=== PATIENT | female | born 1980 | race Caucasian/White ===

== ENCOUNTER 2019-11-10 08:50 | Emergency (ER) | payer OTHER, SELFPAY ==
--- NOTE | ~2019-11-10 | XR_ITS ---
EXAMINATION: XR shoulder RT min 2V, XR clavicle RT EXAM DATE: 11/10/2019 09:46 INDICATION: No known recent injury provided at this time. Pain of the right shoulder, clavicle. TECHNIQUE: The following right shoulder projections obtained: frontal projection with internal rotati on, frontal projection with external rotation, Grashey, and axillary (4+ views). 2 frontal projectio ns right clavicle. There are no prior studies for comparison. FINDINGS: No evidence of right shoulder rotator cuff calcific tendinosis. Unremarkable right gleno humeral and acromioclavicular joints. There are no acute clavicle or shoulder fractures or dislocatio ns identified. There is no subcutaneous gas. The soft tissue is unremarkable. There are no radiop aque foreign bodies. IMPRESSION: No acute osseous findings. Reviewed, dictated and finalized at location B. RAL MAINTENANCE TECHNICIAN IMPRESSION: No acute osseous findings. IMPRESSION: No acute osseous findings.
[2019-11-10 08:56] VITALS: BP 132/91; PULSE 72; RESP 16; TEMP 36.6; O2SAT 100
--- NOTE | 2019-11-10 10:00 | ED.UPPEXIN ---
HPI - Extremity Injury (Upper) General Chief Complaint: Extremity Injury, Upper <Sydnie Álvarez PA-C - Last Filed: 11/10/19 20:31> Stated Complaint: neck and shoulder pain <CHRISTINE Vann Last Filed: 11/10/19 20:31> Time Seen by Provider: 11/10/19 09:06 <Sydnie Álvarez PA-C - Last Filed: 11/10/19 20:31> Source: patient <CHRISTINE Vann Last Filed: 11/10/19 20:31> Mode of arrival: ambulatory <CHRISTINE Vann Last Filed: 11/10/19 20:31> Limitations: no limitations <CHRISTINE Vann Last Filed: 11/10/19 20:31> History of Present Illness HPI narrative: Patient presents with chief complaint of pain to the right shoulder and clavicle that began 1 week ago after stretching her arm across her body. Patient reports that she was seen at her occupational medicine office but the symptoms have persisted. Patient states she has not had any imaging done. Patient states that it feels tight but after having her partner rubbed the area the pain felt better than worsen. Patient denies any direct trauma to the shoulder prior fracture. Patient denies any other symptoms. <Sydnie Álvarez PA-C - Last Filed: 11/10/19 20:31> Related Data Home Medications: Home Medications Medication Instructions Recorded Confirmed levothyroxine 112 mcg PO DAILY 11/10/19 11/10/19 <CHRISTINE Vann Last Filed: 11/10/19 20:31> Allergies/Adverse Reactions: Allergies Allergy/AdvReac Type Severity Reaction Status Date / Time ciprofloxacin Allergy Intermediate Hives / Verified 02/22/18 08:21 Red Face metronidazole [From Flagyl] Allergy Hives Verified 11/10/19 08:55 <CHRISTINE Vann Last Filed: 11/10/19 20:31> Review of Systems Review of Systems: Narrative: CONSTITUTIONAL: Denies fever, chills, or sweats. EYES: Denies visual changes, redness, or discharge. ENT: Denies rhinorrhea, congestion, sore throat, or otalgia. CARDIOVASCULAR: Denies chest pain, palpitations, or edema. RESPIRATORY: Denies cough or dyspnea. GASTROINTESTINAL: Denies abdominal pain, nausea, vomiting, or diarrhea. GENITOURINARY: Denies dysuria or hematuria. SKIN: Denies rash or itching. MUSCULOSKELETAL: Reports right shoulder and clavicle pain NEUROLOGIC: Denies headache, numbness, dizziness, or weakness. PSYCHIATRIC: Denies anxiety or depression. <Sydnie Álvarez PA-C - Last Filed: 11/10/19 20:31> [facility], [facility] Past Medical History Medical History: Medical History (Updated 11/11/19 @ 00:00 by Background Daemon) Hypothyroid <CHRISTINE Vann Last Filed: 11/10/19 20:31> Social History Social History: Social History Smoking status: Current every day smoker Alcohol intake: never Gender identity (if verbalized by the patient): Female <Sydnie Álvarez PA-C - Last Filed: 11/10/19 20:31> Exam Narrative: Exam Narrative: GENERAL: Well-appearing, well-nourished, and in no acute distress. HEAD: Normocephalic, atraumatic. EYES: PERRLA and EOMI. ENT: Nares clear, no rhinorrhea or epistaxis. Mucous membranes moist. Oropharynx without tonsillar hypertrophy exudate or other lesions. Bilateral TMs pearly roberts nonbulging NECK: Supple. No adenopathy or masses. Range of motion intact CHEST: Clear to auscultation. No respiratory distress. No wheezes rales or rhonchi HEART: Regular rate and rhythm. No murmur heard. Normal peripheral pulses. ABDOMEN: Soft, nontender, nondistended, normal active bowel sounds. EXTREMITIES: Range of motion intact to right shoulder. Pain with external rotation and adduction. Tightness of the right sternocleidomastoid area and tenderness palpation. No outward signs of deformity or trauma. SKIN: Warm, dry, no rash. NEURO: No focal deficits. Alert and oriented x3. PSYCH: Normal mood and affect. <Sydnie Álvarez PA-C - Last Filed: 11/10/19 20:31> Course Vital Signs Vital signs: Vital Signs Temperature 36.6 C 11/10/19 08:56 Pulse Ra
== END 2019-11-10 10:16 | disposition home or self-care (01) ==
PROVIDERS: Emergency Provider Emergency Medicine
DX: S46.911A Strain of unspecified muscle, fascia and tendon at shoulder and upper arm level, right arm, initial encounter (principal); S16.1XXA Strain of muscle, fascia and tendon at neck level, initial encounter; E03.9 Hypothyroidism, unspecified; F17.200 Nicotine dependence, unspecified, uncomplicated; X58.XXXA Exposure to other specified factors, initial encounter
CPT/HCPCS: 73000; 73030; 99283

== ENCOUNTER 2020-01-18 12:14 | Emergency (ER) | payer OTHER, SELFPAY ==
[2020-01-18 12:17] VITALS: BP 142/87; PULSE 76; RESP 18; TEMP 36.8; O2SAT 100
--- NOTE | 2020-01-18 12:26 | ED.FEMALEGU ---
HPI - Female Genitourinary General Chief complaint: Unspecified <Adolfo Hogue PA-C - Last Filed: 01/18/20 13:35> Stated complaint: fatigued <CHRISTINE Eckert Last Filed: 01/18/20 13:35> Time Seen by Provider: 01/18/20 12:21 <CHRISTINE Eckert Last Filed: 01/18/20 13:35> Source: patient and RN notes reviewed <CHRISTINE Eckert Last Filed: 01/18/20 13:35> Mode of arrival: ambulatory <CHRISTINE Eckert Last Filed: 01/18/20 13:35> Limitations: no limitations <CHRISTINE Eckert Last Filed: 01/18/20 13:35> History of Present Illness HPI Narrative: Pt is a 39 y/o female with a Hx of UTI's, who presents to the ED with c/o possible UTI. She notes that she began having dysuria and cloudy appearing urine last night. Pt states that she is concerned she may have a UTI. She also reports a cough for the past several days, but denies any ABD pain, back pain, fever, vomiting, or SOB. Pt states that she hasn't had any recent contact with sick children at home. <Adolfo Hogue PA-C - Last Filed: 01/18/20 13:35> MD elicited complaint: UTI <CHRISTINE Eckert Last Filed: 01/18/20 13:35> Pertinent past history: recurrent UTIs <CHRISTINE Eckert Last Filed: 01/18/20 13:35> Onset (ago): day(s) (1) <Adolfo Hogue PA-C - Last Filed: 01/18/20 13:35> Location of symptoms: urethra <CHRISTINE Eckert Last Filed: 01/18/20 13:35> Urinary symptoms: Dysuria <CHRISTINE Eckert Last Filed: 01/18/20 13:35> Associated symptoms: other (cloudy appearing urine; cough) <CHRISTINE Eckert Last Filed: 01/18/20 13:35> Related Data Home medications: Home Medications Medication Instructions Recorded Confirmed levothyroxine 112 mcg PO DAILY 11/10/19 11/10/19 <ARTEMIO Eckert Last Filed: 01/18/20 13:35> Allergies/Adverse reactions: Allergies Allergy/AdvReac Type Severity Reaction Status Date / Time ciprofloxacin Allergy Intermediate Hives / Verified 01/18/20 12:30 Red Face metronidazole [From Flagyl] Allergy Other Verified 01/18/20 12:30 <ARTEMIO Eckert Last Filed: 01/18/20 13:35> Review of Systems Review of Systems: All systems reviewed & are unremarkable except as noted in HPI and below <ARTEMIO Eckert Last Filed: 01/18/20 13:35> Constitutional: Constitutional: Denies fever(s) <Adolfo Hogue PA-C Last Filed: 01/18/20 13:35> Respiratory: Respiratory: Reports cough and Denies dyspnea <ARTEMIO Eckert Last Filed: 01/18/20 13:35> Gastrointestinal: Gastrointestinal: Denies abdominal pain and Denies vomiting <ARTEMIO Eckert Last Filed: 01/18/20 13:35> Genitourinary: Genitourinary: Reports dysuria and Reports other (cloudy appearing urine) <Adolfo Hogue PA-C Last Filed: 01/18/20 13:35> Musculoskeletal: Musculoskeletal: Denies back pain <ARTEMIO Eckert Last Filed: 01/18/20 13:35> [facility] Past Medical History Medical History: Medical History Back pain Clavicle fracture Diverticulitis Hiatal hernia Hypothyroid Kidney stones Umbilical hernia UTI (urinary tract infection) <ARTEMIO Eckert Last Filed: 01/18/20 13:35> Surgical History Surgical History: Surgical History History of endometrial ablation History of repair of hiatal hernia Hx of appendectomy Hx of section Hx of tubal ligation Hx of umbilical hernia repair <Adolfo Hogue PA-C Last Filed: 01/18/20 13:35> Social History Social History: Social History Smoking status: Current every day smoker Alcohol intake: never Gender identity (if verbalized by the patient): Female <Adolfo Hogue PA-C - Last Filed: 01/18/20 13:35> Course Course Emergency
[2020-01-18 12:32] VITALS: RESP 16
[2020-01-18 12:51] LABS: Add Urine Microscopic? YES; Appearance Urine Cloudy (Clear); Bacteria Urine Trace /hpf; Bilirubin Urine Negative (Negative); Blood Urine 3+ (Negative); Color Urine Yellow (Yellow); Glucose Urine UA Negative (Negative); Ketones Urine Negative (Negative); Leukocyte Esterase Ur 2+ LEU/UL (Negative); Mucus Urine Rare /lpf; Nitrate Urine Negative (Negative); Protein Urine 2+ mg/dL (Negative); RBC Urine >75 /hpf (0-2); Specific Grav Ur 1.015 (1.001-1.035); Squamous Epithelial Cell Urine Many /hpf (Few); Urobilinogen Urine Negative mg/dL (<2.0); WBC Urine >75 /hpf
== END 2020-01-18 13:49 | disposition home or self-care (01) ==
PROVIDERS: Emergency Medicine Emergency Medical Services; Emergency Provider General Practice
DX: N39.0 Urinary tract infection, site not specified (principal); E03.9 Hypothyroidism, unspecified; Z87.442 Personal history of urinary calculi; F17.200 Nicotine dependence, unspecified, uncomplicated
CPT/HCPCS: 81001; 87077; 87086; 87088; 87186; 99283

== ENCOUNTER 2023-03-17 08:53 | Emergency (ER) | payer BC, SELFPAY ==
--- NOTE | ~2023-03-17 | CT_ITS ---
EXAMINATION: CT abdomen pelvis w con DATE: 03/17/2023 09:44 INDICATION: Left lower quadrant abdominal pain TECHNIQUE: Computed tomography (CT) of the abdomen and pelvis was performed with 100 CC Omnipaque 350 intravenous contrast. Automated exposure control and iterative reconstruction technique were employe d. Exam dose: 327.64 mGy-cm total exam DLP. COMPARISON: 07/16/2019 CT abdomen pelvis FINDINGS: The lung bases are clear. Normal heart size. No pericardial or pleural effusion. Chronic cy sts are noted along the right heart margin in the lower chest There are several probable hepatic cavernous hemangiomas with peripheral flow and contrast material. Occasional probable hepatic cysts. Borderline splenic size. Abdomen is present. No gallbladder wall thickening or pericholecystic fluid or fat stranding. No bile duct or pancreatic duct dilatation. No pancreatic mass lesion or calcification. Normal morphology of the adrenal glands. There are couple of up to 8 mm left renal cysts. Approximately 3 mm nonobstructing lower pole right renal calculus. There are 2 pinpoint nonobstructin g left renal calculi. No ureteral calculus or hydroureteronephrosis. Normal caliber of the abdominal aorta. No intraperitoneal or retroperitoneal or pelvic mass lesion or adenopathy or ascites. The urinary bladder, uterus and adnexal areas are unremarkable except for a peripherally enhancing ap proximately 2 cm left corpus luteum cyst. There is localized pericolic fat infiltration at the very proximal sigmoid colon, consistent with mil d diverticulitis, without abscess or intraperitoneal free air. There are numerous diverticula of the colon, particularly of the sigmoid and descending colon. No bow el obstruction or intraperitoneal free air. Small fat-containing umbilical hernia. Severe degenerative disc disease and prominent posterior spurring at L4-5. No suspicious osteolytic or osteoblastic lesions. IMPRESSION: Focal mild diverticulitis of the proximal sigmoid colon Diverticulosis of left and right colon, particularly left colon Bilateral nonobstructive nephrolithiasis Hepatic hemangiomas and cysts Left renal cysts Reviewed, dictated and finalized at Location [facility]. Reviewed, dictated and finalized at location A.
[2023-03-17 09:03] VITALS: BP 143/104; PULSE 84; RESP 14; TEMP 36.4; O2SAT 99
[2023-03-17 09:12] LABS: Basophils Absolute Auto 0.1 K/mm3 (0.0-0.1); Basophils Percent Auto 0.8 % (0.2-1.2); Eosinophils Absolute Auto 0.2 K/mm3 (0-0.3); Eosinophils Percent Auto 2.2 % (0-4.4); Hematocrit 42.8 % (37.0-47.0); Hemoglobin 14.9 g/dL (12.0-15.0); Immature Granulocyte Absolute 0.08 K/mm3 (0.00-0.031); Immature Granulocyte Percent A 1.1 % (0-0.5); Lymphocytes Absolute Auto 2.39 K/mm3 (0.9-3.2); Lymphocytes Percent Auto 31.5 % (18.3-44.2); Mean Corpuscular HGB Conc 34.8 g/dl (32-36); Mean Corpuscular Hemoglobin 32.5 pg (26-34); Mean Corpuscular Volume 93.2 fl (80-100); Mean Platelet Volume 9.4 fl (7.4-10.4); Monocytes Absolute Auto 0.5 K/mm3 (0.1-0.6); Monocytes Percent Auto 6.2 % (2.6-8.5); Neutrophils Absolute Auto 4.4 K/mm3 (1.3-6.7); Neutrophils Percent Auto 58.2 % (45.5-73.1); Platelet Count Result 266 k/mm3 (150-375); Red Blood Count 4.59 M/mm3 (4.2-5.4); White Blood Count 7.6 K/mm3 (4.5-10.0)
--- NOTE | 2023-03-17 09:13 | ED.ABDPAIN ---
HPI - Abdominal Pain General Chief Complaint: Abdominal Pain Stated Complaint: abd pain Time Seen by Provider: 03/17/23 09:01 History of Present Illness HPI narrative: 43-year-old female with a history of diverticulitis reports for evaluation of left lower quadrant pain x3 days. Patient reports 3 days prior to the onset of pain, she was having multiple episodes of diarrhea. The diarrhea has since resolved and then the left lower quadrant pain started and has been a dull ache since that is sharp when she pushes on her left lower quadrant. States she is concerned it is diverticulitis since it is similar to when she had it in the past, however when she had it previously she had pain in the right lower quadrant. States when she eats she feels like she is not fully digesting her food. She has been eating a clear liquid diet, however states she had a cheat meal yesterday. She reports associated nausea and low back pain. Denies fever, body aches, chills, current diarrhea, melena or hematochezia, chest pain or shortness of breath, urinary complaints. Her last bowel movement was yesterday and normal. LMP ~2-3 weeks ago. Related Data Home Medications Medication Instructions Recorded Confirmed levothyroxine 112 mcg tablet 112 mcg PO DAILY 01/31/22 01/31/22 (Euthyrox) valacyclovir 500 mg tablet 500 mg PO DAILY 01/31/22 01/31/22 (Valtrex) Allergies Allergy/AdvReac Type Severity Reaction Status Date / Time ciprofloxacin Allergy Intermediate Hives / Verified 03/17/23 09:05 Red Face metronidazole [From Flagyl] Allergy Intermediate Other Verified 03/17/23 09:05 Review of Systems Review of Systems: CONSTITUTIONAL: Denies fever, chills EYES: Denies visual changes, redness, or discharge. ENT: Denies rhinorrhea, congestion, sore throat, or otalgia. CARDIOVASCULAR: Denies chest pain, palpitations, or edema. RESPIRATORY: Denies cough or dyspnea. GASTROINTESTINAL: See HPI GENITOURINARY: Denies dysuria or hematuria. SKIN: Denies rash or itching. MUSCULOSKELETAL: Denies joint pain, or myalgia. NEUROLOGIC: Denies headache, numbness, dizziness, or weakness. PSYCHIATRIC: Denies anxiety or depression. [facility] Past Medical History Medical History Back pain Clavicle fracture Diverticulitis Hiatal hernia HSV-2 infection Hypothyroid Kidney stones Umbilical hernia UTI (urinary tract infection) Surgical History Surgical History History of endometrial ablation Hx of appendectomy Hx of section Hx of tubal ligation Family History Family History Other Cervical cancer Congestive heart failure Diabetes mellitus Hypertension Hypothyroid Lung cancer Social History Social History Smoking status: Current every day smoker Tobacco type: cigarettes Alcohol intake: current Alcohol use details: SOCIALLY Substance use: never Substance use type: does not use Living arrangements: with family Occupation/Education: occupation Additional occupation/education comments: concession cashier Gender identity (if verbalized by the patient): Female Sexual Orientation (if Verbalized by the Patient): Straight or Heterosexual Exam Narrative: GENERAL: Well-appearing, in no acute distress. Patient resting comfortably examined. She is pleasant and conversational. HEAD: Normocephalic EYES: PERRLA, EOMI ENT: Nares clear. Mucous membranes moist. Oropharynx without tonsillar hypertrophy exudate or other lesions. NECK: Supple. CHEST: No respiratory distress. Clear to auscultation, no adventitious breath sounds. HEART: Regular rate and rhythm. No murmur heard. Normal peripheral pulses. ABDOMEN: Normal active bowel sounds, soft. Tenderness in the left lower quadrant and suprapubic region. No
[2023-03-17] MEDS: ONDANSETRON INJ 4 MG/2 ML VIAL IV PUSH (09:17)
[2023-03-17] MEDS: SODIUM CHLORIDE 0.9% IV 1,000 ML 999 ML IV CONT (09:17)
[2023-03-17] MEDS: KETOROLAC 30 MG/ML VIAL (*BKC) IV PUSH (09:17)
[2023-03-17 09:19] LABS: Appearance Urine Cloudy (Clear); Bacteria Urine None Seen /hpf; Bilirubin Urine Negative (Negative); Blood Urine Negative (Negative); Color Urine Yellow (Yellow); Glucose Urine UA Negative (Negative); Ketones Urine Negative (Negative); Leukocyte Esterase Ur Negative LEU/UL (Negative); Nitrate Urine Negative (Negative); Non Pathogenic Casts 0-2; Protein Urine Negative (Negative); RBC Urine 0-2 /hpf (0-2); Specific Grav Ur 1.005 (1.001-1.035); Squamous Epithelial Cell Urine Occasional /hpf (Few); Urobilinogen Urine 0.2 mg/dL (<2.0); WBC Urine 0-5 /hpf
[2023-03-17 09:22] LABS: Add Urine Microscopic? YES
[2023-03-17 09:26] LABS: Alanine Aminotransferase 14 U/L (6-35); Albumin Level 4.2 g/dL (3.5-5.1); Alkaline Phosphatase 64 U/L (38-126); Anion Gap 8 mmol/L (8-16); Aspartate Amino Transferase 19 U/L (14-36); Bilirubin,Total 0.6 mg/dL (0.2-1.3); Blood Urea Nitrogen 6 mg/dL (7-17); Calcium 8.8 mg/dL (8.4-10.2); Carbon Dioxide 24 mmol/L (22-30); Chloride 107 mmol/L (98-107); Estimated Glomerular Filt Rate > 60; Glucose 88 mg/dL (65-110); Lipase 83 U/L (23-300); Potassium 4.4 mmol/L (3.4-5.0); Sodium 139 mmol/L (137-145)
[2023-03-17 10:50] VITALS: BP 121/78; PULSE 74; RESP 19; O2SAT 98
== END 2023-03-17 10:50 | disposition home or self-care (01) ==
PROVIDERS: Emergency Medicine; Emergency Provider Physician Assistant
DX: K57.92 Diverticulitis of intestine, part unspecified, without perforation or abscess without bleeding (principal); B00.9 Herpesviral infection, unspecified; F17.210 Nicotine dependence, cigarettes, uncomplicated
CPT/HCPCS: 36415; 74177; 80053; 81001; 81025; 83690; 85025; 96374; 96375; 99284; J1885; J2405; J7030; Q9967

== ENCOUNTER 2023-10-08 15:48 | Emergency (ER) | payer BC, SELFPAY ==
--- NOTE | ~2023-10-08 | CT_ITS ---
EXAMINATION: CT abdomen pelvis w con DATE: 10/09/2023 00:49 INDICATION: Left abdominal pain. Nausea. TECHNIQUE: Computed tomography (CT) of the abdomen and pelvis was performed with 100 mL Omnipaque 350 intravenous contrast. Automated exposure control and iterative reconstruction technique were employe d. The dose-length product was 389.41 mGy-cm. COMPARISON: CT abdomen and pelvis 03/17/2023 FINDINGS: The visualized portions of the lung bases demonstrate minimal atelectasis in right middle l obe. No pleural effusion. The heart size is normal. No pericardial effusion. There is a 4.7 x 1.3 cm pericardial cyst on the right. There are hemangiomas in the liver measuring up to 2.1 cm. There are c ysts in the liver measuring up to 7 mm. The gallbladder is contracted. The spleen, pancreas, and adre nal glands are normal. There is a 4 mm stone in right kidney. There are cysts in left kidney measurin g up to 9 mm. There is diverticulosis of the colon without evidence of diverticulitis. There are no d ilated loops of bowel. The appendix is not visualized. There are no pathologically enlarged lymph nod es. There is no free intraperitoneal fluid. The bladder is distended. There is severe lumbar spondylo sis. IMPRESSION: 1. No etiology for the patient's symptoms. Reviewed, dictated and finalized at location E. RAFT AVIONICS TECHNICIAN
--- NOTE | ~2023-10-08 | US_ITS ---
EXAMINATION: US pelvic complete w TV DATE: 10/09/2023 04:22 INDICATION: Left lower quadrant abdominal pain. Left ovarian cyst. TECHNIQUE: Multiple transabdominal and transvaginal sonographic images of the pelvis were obtained. COMPARISON: CT abdomen and pelvis 10/09/2023 FINDINGS: TRANSABDOMINAL ULTRASOUND: The uterus measures 8.0 x 4.0 x 4.8 cm. There is no free fluid in the pelvis. TRANSVAGINAL ULTRASOUND: The endometrial complex measures 7 mm in thickness. The right ovary measures 3.0 x 1.6 x 2.3 cm. The left ovary measures 3.4 x 2.2 x 2.0 cm. There is a 1.2 cm corpus luteum cyst in left ovary. There is normal vascular flow in the ovaries. IMPRESSION: 1. Normal pelvis. Reviewed, dictated and finalized at location E. CTOR ASSET IMPRESSION: 1. Normal pelvis.
[2023-10-08 16:22] VITALS: BP 142/79; PULSE 78; RESP 16; TEMP 36.3; O2SAT 100
[2023-10-08 23:02] VITALS: BP 144/96; PULSE 72; RESP 18; TEMP 36.8; O2SAT 100
[2023-10-08 23:27] LABS: Basophils Absolute Auto 0.1 K/mm3 (0.0-0.1); Basophils Percent Auto 0.7 % (0.2-1.2); Eosinophils Absolute Auto 0.2 K/mm3 (0-0.3); Eosinophils Percent Auto 2.5 % (0-4.4); Hematocrit 43.7 % (37.0-47.0); Hemoglobin 14.5 g/dL (12.0-15.0); Immature Granulocyte Absolute 0.06 K/mm3 (0.00-0.031); Immature Granulocyte Percent A 0.7 % (0-0.5); Lymphocytes Percent Auto 36.9 % (18.3-44.2); Mean Corpuscular HGB Conc 33.2 g/dl (32-36); Mean Corpuscular Hemoglobin 31.7 pg (26-34); Mean Corpuscular Volume 95.6 fl (80-100); Mean Platelet Volume 10.3 fl (7.4-10.4); Monocytes Absolute Auto 0.5 K/mm3 (0.1-0.6); Monocytes Percent Auto 5.1 % (2.6-8.5); Neutrophils Percent Auto 54.1 % (45.5-73.1); Platelet Count Result 255 k/mm3 (150-375); Red Blood Count 4.57 M/mm3 (4.2-5.4); White Blood Count 9.2 K/mm3 (4.5-10.0)
[2023-10-08 23:29] LABS: Appearance Urine Clear (Clear); Bilirubin Urine Negative (Negative); Blood Urine Negative (Negative); Color Urine Yellow (Yellow); Glucose Urine UA Negative (Negative); Ketones Urine Negative (Negative); Leukocyte Esterase Ur Negative LEU/UL (Negative); Nitrate Urine Negative (Negative); Protein Urine Negative (Negative); Specific Grav Ur 1.009 (1.001-1.035); Urobilinogen Urine 0.2 mg/dL (<2.0); pH Urine 5.5 (5.0-9.0)
[2023-10-08 23:36] LABS: Add Urine Microscopic? NO; Alanine Aminotransferase 11 U/L (6-35); Albumin Level 4.1 g/dL (3.5-5.1); Alkaline Phosphatase 74 U/L (38-126); Anion Gap 7 mmol/L (8-16); Aspartate Amino Transferase 20 U/L (14-36); Bilirubin,Total 0.4 mg/dL (0.2-1.3); Blood Urea Nitrogen 10 mg/dL (7-17); Calcium 9.1 mg/dL (8.4-10.2); Carbon Dioxide 24 mmol/L (22-30); Chloride 106 mmol/L (98-107); Estimated CRCL calculation 94 ml/min; Estimated Glomerular Filt Rate > 60; Glucose 95 mg/dL (65-110); Lipase 154 U/L (23-300); Potassium 3.8 mmol/L (3.4-5.0); Sodium 137 mmol/L (137-145)
[2023-10-09] VITALS (11 sets, daily range): BP systolic 103–150; BP diastolic 75–95; PULSE 66–80; RESP 12–18; TEMP 36.7; O2SAT 94–100
[2023-10-09] MEDS: SODIUM CHLORIDE 0.9% IV 1,000 ML 999 ML IV CONT (00:48)
[2023-10-09] MEDS: ONDANSETRON INJ 4 MG/2 ML VIAL IV PUSH ×2 (00:49→05:23)
[2023-10-09] MEDS: MORPHINE SULFATE (*CRX) 4 MG/ML INJ IV PUSH ×2 (00:50→03:24)
--- NOTE | 2023-10-09 01:00 | ED.ABDPAIN ---
HPI - Abdominal Pain General Chief Complaint: Abdominal Pain <CHRISTINE Myers Last Filed: 10/09/23 03:42> Stated Complaint: abd pain <CHRISTINE Myers Last Filed: 10/09/23 03:42> Time Seen by Provider: 10/08/23 22:51 <CHRISTINE Myers Last Filed: 10/09/23 03:42> Source: patient <CHRISTINE Myers Last Filed: 10/09/23 03:42> Mode of arrival: ambulatory <CHRISTINE Myers Last Filed: 10/09/23 03:42> Limitations: no limitations <CHRISTINE Myers Last Filed: 10/09/23 03:42> History of Present Illness HPI narrative: patient is a 43-year-old female who presents to the ED with report of left-sided abdominal pain. Patient reports she began having pain in her left-sided abdomen today. States pain is mild with intermittent waves of increased severity. She notes history of diverticulitis and was concerned she may be having a flare up. Last episode of diverticulitis was in in March of this year. Patient denies any diarrhea or constipation. States she had 2 loose bowel movements this morning. Denied rectal bleeding or melena. Reports nausea, denies vomiting. Denies fevers. Denies dysuria, hematuria. <CHRISTINE Myers Last Filed: 10/09/23 03:42> Related Data Home Medications: Home Medications Medication Instructions Recorded Confirmed levothyroxine 112 mcg tablet 112 mcg PO DAILY 01/31/22 01/31/22 (Euthyrox) valacyclovir 500 mg tablet 500 mg PO DAILY 01/31/22 01/31/22 (Valtrex) <CHRISTINE Myers Last Filed: 10/09/23 03:42> Allergies/Adverse Reactions: Allergies Allergy/AdvReac Type Severity Reaction Status Date / Time ciprofloxacin Allergy Intermediate Hives / Verified 03/17/23 09:05 Red Face metronidazole [From Flagyl] Allergy Intermediate Other Verified 03/17/23 09:05 <Maria Isabel Banks PA-C - Last Filed: 10/09/23 03:42> Review of Systems Review of Systems: CONSTITUTIONAL: Denies fever, chills, or sweats. GASTROINTESTINAL: See HPI. GENITOURINARY: Denies dysuria or hematuria. <Maria Isabel Banks PA-C - Last Filed: 10/09/23 03:42> All systems reviewed & are unremarkable except as noted in HPI and below <Maria Isabel Banks PA-C - Last Filed: 10/09/23 03:42> [facility] Past Medical History Medical History: Medical History Back pain Clavicle fracture Diverticulitis Hiatal hernia HSV-2 infection Hypothyroid Kidney stones Umbilical hernia UTI (urinary tract infection) <Maria Isabel Banks PA-C - Last Filed: 10/09/23 03:42> Surgical History Surgical History: Surgical History History of endometrial ablation Hx of appendectomy Hx of section Hx of tubal ligation <Maria Isabel Banks PA-C - Last Filed: 10/09/23 03:42> Family History Family History: Family History Other Cervical cancer Congestive heart failure Diabetes mellitus Hypertension Hypothyroid Lung cancer <Maria Isabel Banks PA-C - Last Filed: 10/09/23 03:42> Social History Social History: Social History Smoking status: Current every day smoker Tobacco type: cigarettes Alcohol intake: current Alcohol use details: SOCIALLY Substance use: never Substance use type: does not use Living arrangements: with family 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
== END 2023-10-09 06:30 | disposition home or self-care (01) ==
PROVIDERS: Emergency Provider Emergency Medicine; PCP Internal Medicine
DX: K52.9 Noninfective gastroenteritis and colitis, unspecified (principal); N83.202 Unspecified ovarian cyst, left side; E03.9 Hypothyroidism, unspecified; B00.9 Herpesviral infection, unspecified; F17.210 Nicotine dependence, cigarettes, uncomplicated
CPT/HCPCS: 36415; 74177; 76830; 76856; 80053; 81003; 81025; 83690; 85025; 96361; 96374; 96375; 96376; 99284; J2270; J2405; J7030; Q9967